=== PATIENT | male | born 1995 | race Caucasian/White ===

== ENCOUNTER 2024-05-29 20:43 | Emergency (ER) | payer OTHER, SELFPAY ==
[2024-05-29 21:01] VITALS: BP 135/76; PULSE 89; RESP 16; TEMP 37.1; O2SAT 100; BMI 26.5
[2024-05-29 21:19] LABS: Add Manual Diff / Slide Review NO; Basophils Absolute Auto 0 /uL (0-100); Basophils Percent Auto 0.1 % (0-2); Eosinophils Absolute Auto 100 /uL (0-450); Eosinophils Percent Auto 0.7 % (2-4); Hematocrit 46.2 % (41-53); Hemoglobin 15.8 g/dL (13.5-17.5); Lymphocytes Absolute Auto 600 /uL (1100-4500); Lymphocytes Percent Auto 4.7 % (25-40); Mean Corpuscular HGB Conc 34.3 % (30-36); Mean Corpuscular Hemoglobin 29.8 PG (26-34); Monocytes Absolute Auto 800 /uL (0-900); Monocytes Percent Auto 6.4 % (3-14); Neutrophils Absolute Auto 10800 /uL (1500-7000); Neutrophils Percent Auto 88.1 % (50-75); Platelet Count 216 X10^3/uL (150-400); Red Blood Cell Count 5.31 X10^6/uL (4.5-5.9); Red Cell Distribution Width 12.6 % (11.6-14.8); White Blood Cell Count 12.2 X10^3/uL (4.5-11.0)
[2024-05-29 21:23] LABS: Alanine Aminotransferase 32 IU/L (<50); Albumin 4.7 g/dL (3.5-5.0); Albumin Globulin Ratio 1.6 (1.0-2.8); Alkaline Phosphatase 76 U/L (38-126); Aspartate Aminotransferase 33 IU/L (17-59); Bilirubin Total 0.8 mg/dL (0.2-1.3); Blood Urea Nitrogen 15 mg/dL (9-20); Calcium 9.2 mg/dL (8.4-10.2); Carbon Dioxide 22 mmol/L (22-32); Chloride 106 mmol/L (98-107); Estimated Glomerular Filt Rate > 60 mL/min (>60); Glucose 121 mg/dL (70-100); HEMOLYSIS 16 (0-50); Lipase 72 U/L (23-300); Potassium 4.3 mmol/L (3.4-5.1); Sodium 139 mmol/L (137-145); Total Protein 7.7 g/dL (6.3-8.2)
[2024-05-29 22:31] VITALS: BP 134/76; PULSE 89; O2SAT 100
[2024-05-30] VITALS (10 sets, daily range): BP systolic 116–124; BP diastolic 56–73; PULSE 82–91; RESP 14; O2SAT 96–100
--- NOTE | 2024-05-30 00:22 | ED.NAVMDI ---
HPI - Nausea/Vomiting/Diarrhea General Chief complaint: Nausea/Vomiting/Diarrhea Stated complaint: N/V/D Time Seen by Provider: 05/30/24 00:22 Source: patient Mode of arrival: Ambulatory History of Present Illness HPI Narrative: 29-year-old male without any significant past medical history comes into the ED from home for evaluation of flu-like symptoms nausea vomiting diarrhea that started today. He states that he has been having cough and flu-like symptoms for the past few weeks but today he had sudden onset abdominal pain nausea vomiting and diarrhea. He states he was not able to hold anything down for 4 hours therefore decided come into the ED for further evaluation treatment. He denies any other symptoms such as headache visual disturbances chest pain shortness of breath fever chills or any other GI/ symptoms at this time. Related Data Previous Rx's Medication Instructions Recorded amoxicillin 875 mg-potassium 1 tab PO BID 10 days #20 tabs 05/30/24 clavulanate 125 mg tablet ondansetron 4 mg disintegrating 4 mg PO Q8H PRN nausea and 05/30/24 tablet vomiting 5 days #15 tabs Allergies Allergy/AdvReac Type Severity Reaction Status Date / Time No Known Drug Allergies Allergy Verified 05/29/24 21:01 Review of Systems Review of Systems Narrative: General: Denies fever, chills, weight loss HEENT: Denies headache, eye drainage, eye irritation, head trauma, sore throat, voice change Cardiovascular: Denies any chest pain, palpitations, tachycardia Respiratory: Positive cough, denies shortness of breath wheeze stridor GI/: Positive abdominal pain, nausea, vomiting, diarrhea, denies bright red blood per rectum, melanotic stools, urinary frequency, urinary retention, dysuria, hematuria MSK: Denies any joint pain, muscle pains, swelling Skin: Denies any rashes, lesions, discoloration Neuro: Denies any headache, lightheadedness, dizziness, fainting, weakness Psych: Denies SI/HI Patient History Social History Smoking Status: Never smoker Smoking Status: Never smoker Exam Narrative Exam Narrative: General: Cooperative, comfortable, well-developed, not in acute distress HEENT: Normocephalic, atraumatic, PERRLA, normal sclera, eyelids normal, Neck: Active full range of motion, atraumatic Chest: Normal to inspection, negative crepitus, no overlying erythema ecchymosis Respiratory: Normal respiratory effort, not in acute respiratory distress, clear to auscultation bilaterally negative cough, wheeze, tachypnea, rhonchi, rales Cardiology: Regular rate rhythm negative gallop, murmur, rubs GI/: Normal to inspection, soft, nonrigid, no tenderness to palpation, exam deferred MSK: Full range of active range of motion of all 4 extremities, atraumatic Skin: No rashes lesions noted Neuro: Alert awake oriented x3, moves all 4 extremities spontaneously, cranial nerves intact, able to answer all questions appropriately follows commands appropriately Psych: Cooperative, negative suicidal or homicidal ideations Initial Vital Signs Initial Vital Signs: Vital Signs Temperature 98.8 F 05/29/24 21:01 Pulse Rate 89 05/29/24 21:01 Respiratory Rate 16 05/29/24 21:01 Blood Pressure 135/76 05/29/24 21:01 Pulse Oximetry 100 05/29/24 21:01 Oxygen Delivery Method Room Air 05/29/24 21:01 Course Orders Ordered: ED Orders 05/29/24 20:55 Complete Blood Count AUTO DIFF Stat Comprehensive Metabolic Panel Stat Lipase Stat 05/30/24 00:25 CT abdomen pelvis w con Stat 05/30/24 00:26 CXR [XR chest 1V] Stat 05/30/24 00:38 Covid-19 + FLU A/B + RSV - PCR Stat 05/30/24 00:42 Urine Microscopic Stat Ondansetron HCl (Ondansetron 4 Mg/2 Ml Inj) 4 mg IV NOW PRN PRN Reason: Nausea And Vomiting Ondansetron HCl (Ondansetron 4 Mg Odt) 4 mg PO NOW PRN PRN Reason: Nausea And Vomiting Discontinued Medications Famotidine (Famotidine 20 Mg/2 Ml Vial) 20 mg IV NOW ONE Stop: 05/30/24 00:26 Last Admin: 05/30/24 00:35 Dose: 20 mg Documented By: RAHUL Sodium Chloride (Normal Saline 0.9%) 1,000 mls @ 1,000 mls/hr IV BOLUS ONE Stop: 05/30/24 01:24 Last Infusion: 05/30/24 01:16 Dose: Infused Documented By: Infusion: 05/30/24 01:15 Dose: 0 mls/hr Documented By: Admin: 05/30/24 00:34 Dose: 1,000 mls/hr Documented By: RAHUL Piperacillin Sod/Tazobactam (Sod 4.5 gm/ Sodium Chloride) 100 mls @ 200 mls/hr IV NOW ONE Stop: 05/30/24 03:04 Ondansetron HCl (Ondansetron 4 Mg/2 Ml Inj) 4 mg IV NOW ONE Stop: 05/30/24 00:26 Last Admin: 05/30/24 00:35 Dose: 4 mg Documented By: RAHUL Vital Signs Vital signs: Vital Signs - 8 hr 05/29/24 21:01 05/29/24 22:31 05/29/24 22:31 Temperature 98.8 F Pulse Rate 89 89 Respiratory Rate 16 Blood Pressure 135/76 134/76 Pulse Oximetry 100 100 Oxygen Delivery Method Room Air 05/30/24 00:39 05/30/24 00:40 05/30/24 00:40 Temperature Pulse Rate 83 82 Respiratory Rate 14 Blood Pressure 124/65 Pulse Oximetry 98 99 Oxygen Delivery Method Room Air MDM - Nausea/Vomiting/Diarrhea Differential Diagnosis Differential diagnosis: Likely gastroenteritis, dehydration and other (COVID, flu, RSV, electrolyte abnormality, urinary tract infection) Lab Data 05/29/24 20:55 05/29/24 20:55 Labs: Lab Results 05/29/24 05/30/24 05/30/24 Range/Units 20:55 00:38 00:42 WBC 12.2 H (4.5-11.0) X10^3/uL RBC 5.31 (4.5-5.9) X10^6/uL Hgb 15.8 (13.5-17.5) g/dL Hct 46.2 (41-53) % MCV 87.0 (80-100) fL MCH 29.8 (26-34) PG MCHC 34.3 (30-36) % RDW 12.6 (11.6-14.8) % Plt Count 216 (150-400) X10^3/uL Neut % (Auto) 88.1 H (50-75) % Lymph % (Auto) 4.7 L (25-40) % [place] % (Auto) 6.4 (3-14) % Eos % (Auto) 0.7 L (2-4) % Baso % (Auto) 0.1 (0-2) % Neut # (Auto) 29878 H (0546-2509) /uL Lymph # (Auto) 600 L (2589-0933) /uL Victoria # (Auto) 800 (0-900) /uL Eos # (Auto) 100 (0-450) /uL Baso # (Auto) 0 (0-100) /uL Sodium 139 (137-145) mmol/L Potassium 4.3 (3.4-5.1) mmol/L Chloride 106 (98-107) mmol/L Carbon Dioxide 22 (22-32) mmol/L BUN 15 (9-20) mg/dL Creatinine 1.07 (0.66-1.25) mg/dL Estimated GFR > 60 (>60) mL/min BUN/Creatinine Ratio 14.0 (6-22) Glucose 121 H (70-100) mg/dL Calcium 9.2 (8.4-10.2) mg/dL Total Bilirubin 0.8 (0.2-1.3) mg/dL AST 33 (17-59) IU/L ALT 32 (<50) IU/L Alkaline Phosphatase 76 (38-126) U/L Total Protein 7.7 (6.3-8.2) g/dL Albumin 4.7 (3.5-5.0) g/dL Globulin 3.0 (1.7-4.1) g/dL Albumin/Globulin Ratio 1.6 (1.0-2.8) Lipase 72 (23-300) U/L Urine RBC None seen (0-5/HPF) Urine WBC 0-1/hpf (0-5/HPF) Ur Squamous Epith Cells 0-1 /hpf (0-5/HPF) Urine Bacteria Few (2-10) H (None) Urine Mucus 3+ H (Negative) Ur Culture Indicated? Cult not indicated Vol Urine Centrifuged 10ml (spun) SARS-CoV-2 (PCR) Negative (Negative) Influenza A (RT-PCR) Flu a negative (NEGATIVE) Influenza B (RT-PCR) Flu b negative (NEGATIVE) RSV (PCR) Negative (Negative) Urine Dip Bedside Urine Glucose Negative Bedside Urine Bilirubin - Negative Bedside Urine Ketone ++ 40 Urine Specific [place] 1.025 Bedside Urine Occult Blood - Negative Bedside Urine pH 6.0 Bedside Urine Protein +/- 15 Bedside Urine Urobilinogen - Negative Bedside Urine Nitrite - Negative Bedside Urine Leukocytes - Negative Esterase Imaging Data Chest x-ray: Radiologist's Impression: Preliminary read showing no acute cardiopulmonary abnormality CT scan - abdomen/pelvis: Radiologist's Impression: CT scan showing appendix mildly prominent at 7 mm with mild periappendiceal inflammatory changes consistent with possible early appendicitis otherwise no other acute findings MDM Narrative Medical decision making narrative: 29-year-old male without significant past medical history presents for nausea vomiting abdominal pain diarrhea started abruptly yesterday, states that he has been having cough and flu-like symptoms few weeks prior, he states that he is not having any bright red blood per rectum no melanotic stools. Patient had lab work imaging urinalysis performed here in the emergency department. Patient with mild elevation to his WBC 12.2, otherwise Chem panel unremarkable, patient had chest x-ray and CT scan of his abdomen performed here. Chest x-ray without any acute cardiopulmonary abnormality. CT scan of the abdomen showing possible early appendicitis without appendical abscess or other acute findings. Patient not meeting sepsis sirs criteria. 0300: Had discussion with general surgeon Dr. Tony, agrees with plan of 1st dose of IV antibiotics and to have patient discharged with oral antibiotics antinausea medication and pain medication. 0311: Patient feeling significantly improved after administration of medication here, informed him of his CT scan results and plan for IV antibiotics and discharged home with oral antibiotics and symptom management, he understands agrees with the plan, he was given strict return precautions he verbalized understanding of this and agrees to being discharged home with outpatient follow up Discharge Plan Departure Patient Disposition: Home Clinical Impression: Appendicitis Instructions: DI for Appendicitis -- Adult Activity Restrictions/Additional Instructions: Please return to the emergency department if you start developing worsening abdominal pain, fevers chills or worsening nausea vomiting Please follow up with primary care and general surgery Please read the discharge instructions sheet carefully and bring all papers to all doctor follow-up visits, as it may contain information that your doctor may want to see. Disease processes change and evolve, if your symptoms worsen or if you develop any new symptoms that are concerning to you please return for evaluation. Your evaluation today does not show any evidence of any life-threatening/serious illnesses requiring admission to the hospital or surgery. Please follow-up with your doctor for re-evaluation in approximately 1 day. Seek immediate medical attention for any worrisome symptoms. *If you do not have a primary care provider please contact the [facility] Resource line at [phone]. They will ask some questions about your medical history and help get you set up with a doctor in the community. Prescriptions: New amoxicillin-pot clavulanate 875-125 mg tablet 1 tab PO BID 10 Days Qty: 20 0RF ondansetron 4 mg tablet,disintegrating 4 mg PO Q8H PRN (Reason: nausea and vomiting) 5 Days Qty: 15 0RF Referrals: Miscellaneous,Doctor, MD [Primary Care Provider] - Stand Alone Forms: Patient Portal/API/Survey
--- NOTE | 2024-05-30 00:25 | DI.CT.S_ITS ---
PROCEDURE: CT ABDOMEN PELVIS W CON INDICATIONS: abd pain , n / v /d TECHNIQUE: After the administration of intravenous contrast, axial sections acquired from the lung bases to the pubic symphysis. Coronal and sagittal reformats were performed. For radiation dose reduction, the following was used: automated exposure control, adjustment of mA and/or kV according to patient size. COMPARISON: None. FINDINGS: Image quality: Diagnostic Lower chest: Basal atelectasis. Heart size is at the upper limit of normal. Liver: Unremarkable Gallbladder and biliary system: Unremarkable, nondilated Pancreas: No ductal dilation Spleen: Borderline enlarged at 13 cm Adrenals: No discrete nodules Kidneys: No solid mass. No hydronephrosis. Vessels and lymph nodes: Main portal vein appears patent. No abdominal aortic aneurysm. No pathologic lymphadenopathy by size criteria. Bowel and peritoneum: No evidence of small bowel obstruction. [id number] diffuse small bowel wall thickening and liquid contents, that extend into the colon. The appendix is nondilated. No drainable abscess or ascites. Body wall: Unremarkable Pelvis: Under distended bladder. Prostate is unremarkable on limited CT evaluation. Bones: No aggressive appearing osseous abnormality IMPRESSION: Nondilated appendix. No small bowel obstruction. Suspect [id number] diffuse CT findings of enterocolitis. Other incidental and nonacute findings above. Dictated by: Kameron Bustos M.D. on 05/30/2024 at 1:33 Approved by: Kameron Bustos M.D. on 05/30/2024 at 1:37
--- NOTE | 2024-05-30 00:26 | DI.RAD.S_ITS ---
PROCEDURE: XR CHEST 1V INDICATIONS: cough TECHNIQUE: One view of the chest was acquired. COMPARISON: [facility], CR, XR CHEST 2 VIEWS, 02/21/2023, 14:48. FINDINGS AND IMPRESSION: On this single view study, no consolidation or pleural effusion. Normal heart size. Unremarkable osseous structures. Dictated by: Kameron Bustos M.D. on 05/30/2024 at 1:32 Approved by: Kameron Bustos M.D. on 05/30/2024 at 1:33
[2024-05-30] MEDS: SODIUM CHLORIDE 0.9% 1,000 ML 1000 ML IV (00:34)
[2024-05-30] MEDS: ONDANSETRON 4 MG/2 ML INJ IV (00:35)
[2024-05-30] MEDS: FAMOTIDINE 20 MG/2 ML VIAL IV (00:35)
[2024-05-30 00:57] LABS: Bacteria Urine Few (2-10); Mucus Urine 3+ (Negative); RBC Urine None Seen (0-5/HPF); Squamous Epithelial Cell Urine 0-1 /HPF (0-5/HPF); Urine Volume 10mL (spun); WBC Urine 0-1/HPF (0-5/HPF)
[2024-05-30 00:58] LABS: Culture Indicated Urine Cult Not Indicated
[2024-05-30 01:23] LABS: Influenza A - CEPHEID Flu A NEGATIVE (NEGATIVE); Influenza B - CEPHEID Flu B NEGATIVE (NEGATIVE); Respiratory Syncytial Virus Negative (Negative)
[2024-05-30 01:24] LABS: COVID-19 CEPHEID 4-PLEX PCR Negative (Negative)
[2024-05-30] MEDS: PIPERACILLIN/TAZO 4.5 GM in SODIUM CHLORIDE 0.9% 100 ML IV (03:14)
[2024-05-30] MEDS: ONDANSETRON 4 MG ODT PREPACK 1 BOTTLE MISC (03:54)
== END 2024-05-30 04:07 | disposition home or self-care (01) ==
PROVIDERS: Emergency Provider Student in an Organized Health Care Education/Training Program
DX: K37 Unspecified appendicitis (principal); R10.9 Unspecified abdominal pain; R19.7 Diarrhea, unspecified
CPT/HCPCS: 0241U; 71045; 74177; 80053; 81003; 81015; 83690; 85025; 96361; 96365; 96375; 99283; 99284; J2405; J2543; Q9967